=== PATIENT | male | born 1930 | race Caucasian/White ===

== ENCOUNTER 2020-01-31 13:46 | Inpatient (IN) ==
[2020-01-31] MEDS: Metoprolol XL (24 HR) Succ 50 MG TAB.ER.24H PO SCH (21:58)
[2020-02-01] MEDS: Piperacillin/Tazobactam 3.375 GM in 0.9 % Sodium Chloride Mini Bag 100 ML IVPB SCH ×3 (01:11→16:43)
[2020-02-01 05:47] LABS: Basophils % 0.4 %; Eosinophils # 0.2 K/mcL (0.0-0.6); Eosinophils % 2.7 %; Hematocrit 35.1 % (37.5-50.1); Hemoglobin 11.4 g/dL (12.9-16.9); Immature Granulocytes % 0.3 % (0-4); Lymphocytes # 1.2 K/mcL (0.6-4.6); Lymphocytes % 12.9 %; Mean Corpuscular HGB Conc 32.5 g/dL (31.6-35.5); Mean Corpuscular Hemoglobin 27.7 pg (28.0-33.3); Mean Corpuscular Volume 85.4 fL (83.0-100.0); Mean Platelet Volume 9.4 fL (9.4-12.4); Monocytes # 0.9 K/mcL (0.0-1.3); Neutrophils # 6.6 K/mcL (1.6-8.9); Platelet Count 262 K/mcL (140-400); Red Blood Count 4.11 M/mcL (4.19-5.50); Red Cell Distribution Width 14.2 % (11.5-14.5); Segmented Neutrophils % 73.7 %; White Blood Count 8.9 K/mcL (4.3-11.1)
[2020-02-01 06:07] LABS: BUN/Creatinine Ratio 13 (6-26); Blood Urea Nitrogen 12 mg/dL (8-23); Calcium 8.6 mg/dL (8.6-10.3); Carbon Dioxide 29 mEq/L (23-29); Chloride 100 mEq/L (98-107); Glucose 121 mg/dL (70-105); Osmolality,Calculated 281 (280-300); Potassium 3.7 mEq/L (3.5-5.1); Sodium 135 mEq/L (136-145); eGFR For African Americans > 60 (> 60); eGFR For Non-African Americans > 60 (> 60)
[2020-02-01] MEDS: Cyanocobalamin (B-12) 1,000 MCG TABLET PO SCH (08:46)
[2020-02-01] MEDS: Ascorbic Acid 500 MG TABLET PO SCH (08:46)
[2020-02-01] MEDS: Aspirin Enteric Coated 81 MG Tablet PO SCH (08:46)
[2020-02-01] MEDS: *HR* Metformin 500 MG TABLET PO SCH (08:47)
[2020-02-01] MEDS: Cholecalciferol (D-3) 1,000 UNIT (25MCG) TABLET PO SCH (08:47)
[2020-02-01] MEDS: hydroCHLOROthiazide 25 MG TABLET PO SCH (08:47)
[2020-02-01] MEDS: *HR* Glimepiride 2 MG TABLET PO SCH (08:47)
[2020-02-01] MEDS: Nystatin POWDER 30 GM BOTTLE TP SCH ×2 (15:04→21:18)
[2020-02-01] MEDS: Metoprolol XL (24 HR) Succ 50 MG TAB.ER.24H PO SCH (18:06)
[2020-02-01] MEDS ORDERED: Melatonin 3 MG TABLET PO ONE (21:05)
[2020-02-01] MEDS ORDERED: D5% in Water 1,000 ML IVC PRN (22:52)
[2020-02-01] MEDS ORDERED: Dextrose Gel 15 GM/37.5 ML TUBE PO PRN ×2 (22:52)
[2020-02-01] MEDS ORDERED: *HR* Dextrose 50 % in Water (Vial) 50 ML VIAL IVP PRN (22:52)
[2020-02-02] MEDS: Piperacillin/Tazobactam 3.375 GM in 0.9 % Sodium Chloride Mini Bag 100 ML IVPB SCH ×3 (01:20→16:53)
[2020-02-02] MEDS: *HR* Enoxaparin 40 MG/0.4 ML SYRINGE SQ SCH (05:29)
[2020-02-02 05:53] LABS: Hematocrit 31.9 % (37.5-50.1); Hemoglobin 10.6 g/dL (12.9-16.9); Mean Corpuscular HGB Conc 33.2 g/dL (31.6-35.5); Mean Corpuscular Hemoglobin 28.3 pg (28.0-33.3); Mean Corpuscular Volume 85.3 fL (83.0-100.0); Mean Platelet Volume 9.7 fL (9.4-12.4); Platelet Count 259 K/mcL (140-400); Red Blood Count 3.74 M/mcL (4.19-5.50)
[2020-02-02] MEDS: Insulin LISPRO 300 UNITS/3 ML VIAL SQ SCH ×4 (07:44→22:08)
[2020-02-02 07:59] LABS: BUN/Creatinine Ratio 15 (6-26); Blood Urea Nitrogen 14 mg/dL (8-23); Calcium 8.2 mg/dL (8.6-10.3); Carbon Dioxide 29 mEq/L (23-29); Chloride 101 mEq/L (98-107); Glucose 106 mg/dL (70-105); Osmolality,Calculated 283 (280-300); Potassium 3.6 mEq/L (3.5-5.1); Sodium 136 mEq/L (136-145); eGFR For African Americans > 60 (> 60); eGFR For Non-African Americans > 60 (> 60)
[2020-02-02] MEDS: Cholecalciferol (D-3) 1,000 UNIT (25MCG) TABLET PO SCH (08:20)
[2020-02-02] MEDS: Ascorbic Acid 500 MG TABLET PO SCH (08:20)
[2020-02-02] MEDS: Aspirin Enteric Coated 81 MG Tablet PO SCH (08:20)
[2020-02-02] MEDS: *HR* Metformin 500 MG TABLET PO SCH (08:20)
[2020-02-02] MEDS: *HR* Glimepiride 2 MG TABLET PO SCH (08:20)
[2020-02-02] MEDS: Nystatin POWDER 30 GM BOTTLE TP SCH ×3 (08:21→22:07)
[2020-02-02] MEDS: Cyanocobalamin (B-12) 1,000 MCG TABLET PO SCH (08:21)
[2020-02-02] MEDS: hydroCHLOROthiazide 25 MG TABLET PO SCH (08:21)
[2020-02-02] MEDS: Metoprolol XL (24 HR) Succ 50 MG TAB.ER.24H PO SCH (16:52)
[2020-02-03] MEDS: Piperacillin/Tazobactam 3.375 GM in 0.9 % Sodium Chloride Mini Bag 100 ML IVPB SCH ×2 (00:39→08:21)
[2020-02-03] MEDS: *HR* Enoxaparin 40 MG/0.4 ML SYRINGE SQ SCH (05:47)
[2020-02-03 07:07] LABS: Basophils % 0.4 %; Eosinophils # 0.3 K/mcL (0.0-0.6); Hematocrit 33.5 % (37.5-50.1); Hemoglobin 11.1 g/dL (12.9-16.9); Immature Granulocytes % 0.4 % (0-4); Lymphocytes # 1.3 K/mcL (0.6-4.6); Lymphocytes % 16.8 %; Mean Corpuscular HGB Conc 33.1 g/dL (31.6-35.5); Mean Corpuscular Hemoglobin 28.1 pg (28.0-33.3); Mean Corpuscular Volume 84.8 fL (83.0-100.0); Mean Platelet Volume 9.9 fL (9.4-12.4); Monocytes # 0.8 K/mcL (0.0-1.3); Monocytes % 9.8 %; Neutrophils # 5.4 K/mcL (1.6-8.9); Platelet Count 308 K/mcL (140-400); Red Blood Count 3.95 M/mcL (4.19-5.50); Segmented Neutrophils % 68.6 %; White Blood Count 7.8 K/mcL (4.3-11.1)
[2020-02-03 07:31] LABS: BUN/Creatinine Ratio 16 (6-26); Blood Urea Nitrogen 15 mg/dL (8-23); Calcium 8.5 mg/dL (8.6-10.3); Carbon Dioxide 30 mEq/L (23-29); Chloride 100 mEq/L (98-107); Glucose 110 mg/dL (70-105); Osmolality,Calculated 287 (280-300); Potassium 3.5 mEq/L (3.5-5.1); Sodium 138 mEq/L (136-145); eGFR For African Americans > 60 (> 60); eGFR For Non-African Americans > 60 (> 60)
[2020-02-03] MEDS: Insulin LISPRO 300 UNITS/3 ML VIAL SQ SCH ×4 (08:12→20:03)
[2020-02-03] MEDS: Cholecalciferol (D-3) 1,000 UNIT (25MCG) TABLET PO SCH (08:20)
[2020-02-03] MEDS: Ascorbic Acid 500 MG TABLET PO SCH (08:20)
[2020-02-03] MEDS: *HR* Metformin 500 MG TABLET PO SCH (08:20)
[2020-02-03] MEDS: Cyanocobalamin (B-12) 1,000 MCG TABLET PO SCH (08:20)
[2020-02-03] MEDS: hydroCHLOROthiazide 25 MG TABLET PO SCH (08:20)
[2020-02-03] MEDS: *HR* Glimepiride 2 MG TABLET PO SCH (08:20)
[2020-02-03] MEDS: Aspirin Enteric Coated 81 MG Tablet PO SCH (08:21)
[2020-02-03] MEDS: Nystatin POWDER 30 GM BOTTLE TP SCH ×3 (08:23→20:03)
[2020-02-03] MEDS: Metoprolol XL (24 HR) Succ 50 MG TAB.ER.24H PO SCH (16:33)
[2020-02-03] MEDS: QUEtiapine Fumarate 25 MG TABLET PO SCH (20:02)
[2020-02-03] MEDS: Doxycycline 100 MG CAPSULE PO SCH (20:03)
[2020-02-04] MEDS: *HR* Enoxaparin 40 MG/0.4 ML SYRINGE SQ SCH (05:48)
[2020-02-04] MEDS: Insulin LISPRO 300 UNITS/3 ML VIAL SQ SCH ×4 (08:35→20:05)
[2020-02-04] MEDS: hydroCHLOROthiazide 25 MG TABLET PO SCH (08:42)
[2020-02-04] MEDS: Ascorbic Acid 500 MG TABLET PO SCH (08:42)
[2020-02-04] MEDS: Doxycycline 100 MG CAPSULE PO SCH ×2 (08:42→20:00)
[2020-02-04] MEDS: Cholecalciferol (D-3) 1,000 UNIT (25MCG) TABLET PO SCH (08:42)
[2020-02-04] MEDS: *HR* Glimepiride 2 MG TABLET PO SCH (08:42)
[2020-02-04] MEDS: *HR* Metformin 500 MG TABLET PO SCH (08:42)
[2020-02-04] MEDS: Aspirin Enteric Coated 81 MG Tablet PO SCH (08:42)
[2020-02-04] MEDS: Nystatin POWDER 30 GM BOTTLE TP SCH ×3 (08:43→20:01)
[2020-02-04] MEDS: Cyanocobalamin (B-12) 1,000 MCG TABLET PO SCH (08:43)
[2020-02-04] MEDS: Neosporin OINT 15 GM TUBE TP SCH ×2 (13:14→20:05)
[2020-02-04] MEDS: Ciprofloxacin OPTH Soln 2.5 ML BOTTLE BOTH EYES SCH ×3 (13:14→20:07)
[2020-02-04] MEDS: Metoprolol XL (24 HR) Succ 50 MG TAB.ER.24H PO SCH (17:01)
[2020-02-04] MEDS: QUEtiapine Fumarate 25 MG TABLET PO SCH (20:01)
[2020-02-05] MEDS: Ciprofloxacin OPTH Soln 2.5 ML BOTTLE BOTH EYES SCH ×6 (02:54→20:20)
[2020-02-05] MEDS: *HR* Enoxaparin 40 MG/0.4 ML SYRINGE SQ SCH (06:05)
[2020-02-05 08:19] LABS: Basophils % 0.4 %; Eosinophils # 0.3 K/mcL (0.0-0.6); Hematocrit 35.3 % (37.5-50.1); Hemoglobin 11.6 g/dL (12.9-16.9); Immature Granulocytes % 0.5 % (0-4); Lymphocytes # 1.2 K/mcL (0.6-4.6); Lymphocytes % 11.5 %; Mean Corpuscular HGB Conc 32.9 g/dL (31.6-35.5); Mean Corpuscular Hemoglobin 28.1 pg (28.0-33.3); Mean Corpuscular Volume 85.5 fL (83.0-100.0); Mean Platelet Volume 9.3 fL (9.4-12.4); Monocytes # 0.9 K/mcL (0.0-1.3); Monocytes % 8.3 %; Neutrophils # 8.2 K/mcL (1.6-8.9); Platelet Count 281 K/mcL (140-400); Red Blood Count 4.13 M/mcL (4.19-5.50); Red Cell Distribution Width 14.4 % (11.5-14.5); Segmented Neutrophils % 76.3 %; White Blood Count 10.7 K/mcL (4.3-11.1)
[2020-02-05 08:35] LABS: BUN/Creatinine Ratio 25 (6-26); Blood Urea Nitrogen 20 mg/dL (8-23); Calcium 8.6 mg/dL (8.6-10.3); Carbon Dioxide 31 mEq/L (23-29); Chloride 100 mEq/L (98-107); Glucose 118 mg/dL (70-105); Osmolality,Calculated 288 (280-300); Potassium 3.7 mEq/L (3.5-5.1); Sodium 137 mEq/L (136-145); eGFR For African Americans > 60 (> 60); eGFR For Non-African Americans > 60 (> 60)
[2020-02-05] MEDS: Insulin LISPRO 300 UNITS/3 ML VIAL SQ SCH ×4 (09:02→23:18)
[2020-02-05] MEDS: Ascorbic Acid 500 MG TABLET PO SCH (09:09)
[2020-02-05] MEDS: *HR* Glimepiride 2 MG TABLET PO SCH (09:09)
[2020-02-05] MEDS: Cholecalciferol (D-3) 1,000 UNIT (25MCG) TABLET PO SCH (09:09)
[2020-02-05] MEDS: Aspirin Enteric Coated 81 MG Tablet PO SCH (09:09)
[2020-02-05] MEDS: hydroCHLOROthiazide 25 MG TABLET PO SCH (09:09)
[2020-02-05] MEDS: *HR* Metformin 500 MG TABLET PO SCH (09:09)
[2020-02-05] MEDS: Doxycycline 100 MG CAPSULE PO SCH ×2 (09:09→20:18)
[2020-02-05] MEDS: Cyanocobalamin (B-12) 1,000 MCG TABLET PO SCH (09:09)
[2020-02-05] MEDS: Nystatin POWDER 30 GM BOTTLE TP SCH ×3 (12:01→20:18)
[2020-02-05] MEDS: Neosporin OINT 15 GM TUBE TP SCH ×2 (12:02→23:18)
[2020-02-05] MEDS: Metoprolol XL (24 HR) Succ 50 MG TAB.ER.24H PO SCH (17:12)
[2020-02-05] MEDS: QUEtiapine Fumarate 25 MG TABLET PO SCH (20:18)
[2020-02-06] MEDS: Ciprofloxacin OPTH Soln 2.5 ML BOTTLE BOTH EYES SCH ×6 (00:44→20:36)
[2020-02-06] MEDS: *HR* Enoxaparin 40 MG/0.4 ML SYRINGE SQ SCH (06:35)
[2020-02-06] MEDS: Insulin LISPRO 300 UNITS/3 ML VIAL SQ SCH ×4 (08:18→20:36)
[2020-02-06] MEDS: Ascorbic Acid 500 MG TABLET PO SCH (08:19)
[2020-02-06] MEDS: Aspirin Enteric Coated 81 MG Tablet PO SCH (08:19)
[2020-02-06] MEDS: *HR* Glimepiride 2 MG TABLET PO SCH (08:19)
[2020-02-06] MEDS: Doxycycline 100 MG CAPSULE PO SCH ×2 (08:19→20:32)
[2020-02-06] MEDS: hydroCHLOROthiazide 25 MG TABLET PO SCH (08:19)
[2020-02-06] MEDS: Cholecalciferol (D-3) 1,000 UNIT (25MCG) TABLET PO SCH (08:19)
[2020-02-06] MEDS: *HR* Metformin 500 MG TABLET PO SCH (08:19)
[2020-02-06] MEDS: Cyanocobalamin (B-12) 1,000 MCG TABLET PO SCH (08:20)
[2020-02-06] MEDS: Neosporin OINT 15 GM TUBE TP SCH ×2 (11:29→20:32)
[2020-02-06] MEDS: Nystatin POWDER 30 GM BOTTLE TP SCH ×3 (11:32→20:32)
[2020-02-06] MEDS: Metoprolol XL (24 HR) Succ 50 MG TAB.ER.24H PO SCH (17:27)
[2020-02-06] MEDS: QUEtiapine Fumarate 25 MG TABLET PO SCH (20:32)
[2020-02-07] MEDS: Ciprofloxacin OPTH Soln 2.5 ML BOTTLE BOTH EYES SCH ×7 (01:37→23:31)
[2020-02-07] MEDS: *HR* Enoxaparin 40 MG/0.4 ML SYRINGE SQ SCH (05:16)
[2020-02-07] MEDS: Insulin LISPRO 300 UNITS/3 ML VIAL SQ SCH ×4 (07:47→20:19)
[2020-02-07] MEDS: Cholecalciferol (D-3) 1,000 UNIT (25MCG) TABLET PO SCH (08:59)
[2020-02-07] MEDS: Aspirin Enteric Coated 81 MG Tablet PO SCH (08:59)
[2020-02-07] MEDS: Doxycycline 100 MG CAPSULE PO SCH ×2 (09:00→19:45)
[2020-02-07] MEDS: hydroCHLOROthiazide 25 MG TABLET PO SCH (09:00)
[2020-02-07] MEDS: *HR* Metformin 500 MG TABLET PO SCH (09:00)
[2020-02-07] MEDS: Cyanocobalamin (B-12) 1,000 MCG TABLET PO SCH (09:00)
[2020-02-07] MEDS: *HR* Glimepiride 2 MG TABLET PO SCH (09:00)
[2020-02-07] MEDS: Ascorbic Acid 500 MG TABLET PO SCH (09:00)
[2020-02-07] MEDS: Nystatin POWDER 30 GM BOTTLE TP SCH ×3 (09:01→19:46)
[2020-02-07] MEDS: Neosporin OINT 15 GM TUBE TP SCH ×2 (09:01→19:46)
[2020-02-07] MEDS: Metoprolol XL (24 HR) Succ 50 MG TAB.ER.24H PO SCH (18:15)
[2020-02-07] MEDS: QUEtiapine Fumarate 25 MG TABLET PO SCH (19:45)
[2020-02-08] MEDS: Ciprofloxacin OPTH Soln 2.5 ML BOTTLE BOTH EYES SCH ×6 (03:38→23:29)
[2020-02-08] MEDS: *HR* Enoxaparin 40 MG/0.4 ML SYRINGE SQ SCH (05:55)
[2020-02-08] MEDS: Insulin LISPRO 300 UNITS/3 ML VIAL SQ SCH ×4 (08:12→20:34)
[2020-02-08] MEDS: *HR* Metformin 500 MG TABLET PO SCH (08:18)
[2020-02-08] MEDS: Doxycycline 100 MG CAPSULE PO SCH ×2 (08:18→20:33)
[2020-02-08] MEDS: *HR* Glimepiride 2 MG TABLET PO SCH (08:18)
[2020-02-08] MEDS: Aspirin Enteric Coated 81 MG Tablet PO SCH (08:18)
[2020-02-08] MEDS: hydroCHLOROthiazide 25 MG TABLET PO SCH (08:18)
[2020-02-08] MEDS: Ascorbic Acid 500 MG TABLET PO SCH (08:18)
[2020-02-08] MEDS: Cholecalciferol (D-3) 1,000 UNIT (25MCG) TABLET PO SCH (08:18)
[2020-02-08] MEDS: Nystatin POWDER 30 GM BOTTLE TP SCH ×3 (08:19→20:33)
[2020-02-08] MEDS: Cyanocobalamin (B-12) 1,000 MCG TABLET PO SCH (08:20)
[2020-02-08] MEDS: Neosporin OINT 15 GM TUBE TP SCH ×2 (14:15→20:34)
[2020-02-08] MEDS: Metoprolol XL (24 HR) Succ 50 MG TAB.ER.24H PO SCH (17:40)
[2020-02-08] MEDS: QUEtiapine Fumarate 25 MG TABLET PO SCH (20:33)
[2020-02-09] MEDS: Ciprofloxacin OPTH Soln 2.5 ML BOTTLE BOTH EYES SCH ×3 (04:05→12:12)
[2020-02-09] MEDS: *HR* Enoxaparin 40 MG/0.4 ML SYRINGE SQ SCH (05:52)
[2020-02-09] MEDS: Insulin LISPRO 300 UNITS/3 ML VIAL SQ SCH ×4 (07:41→20:24)
[2020-02-09] MEDS: Aspirin Enteric Coated 81 MG Tablet PO SCH (08:08)
[2020-02-09] MEDS: Ascorbic Acid 500 MG TABLET PO SCH (08:08)
[2020-02-09] MEDS: Cholecalciferol (D-3) 1,000 UNIT (25MCG) TABLET PO SCH (08:08)
[2020-02-09] MEDS: Doxycycline 100 MG CAPSULE PO SCH ×2 (08:08→20:20)
[2020-02-09] MEDS: Cyanocobalamin (B-12) 1,000 MCG TABLET PO SCH (08:08)
[2020-02-09] MEDS: hydroCHLOROthiazide 25 MG TABLET PO SCH (08:08)
[2020-02-09] MEDS: *HR* Metformin 500 MG TABLET PO SCH (08:08)
[2020-02-09] MEDS: *HR* Glimepiride 2 MG TABLET PO SCH (08:09)
[2020-02-09] MEDS: Nystatin POWDER 30 GM BOTTLE TP SCH ×3 (08:10→20:21)
[2020-02-09] MEDS: Neosporin OINT 15 GM TUBE TP SCH ×2 (08:10→20:20)
[2020-02-09] MEDS: Metoprolol XL (24 HR) Succ 50 MG TAB.ER.24H PO SCH (17:23)
[2020-02-09] MEDS: QUEtiapine Fumarate 25 MG TABLET PO SCH (20:20)
[2020-02-10] MEDS: *HR* Enoxaparin 40 MG/0.4 ML SYRINGE SQ SCH (06:10)
[2020-02-10 06:34] VITALS: BP 149/73
[2020-02-10] MEDS: Insulin LISPRO 300 UNITS/3 ML VIAL SQ SCH ×2 (07:57→12:15)
[2020-02-10] MEDS: Ascorbic Acid 500 MG TABLET PO SCH (08:32)
[2020-02-10] MEDS: Cholecalciferol (D-3) 1,000 UNIT (25MCG) TABLET PO SCH (08:32)
[2020-02-10] MEDS: hydroCHLOROthiazide 25 MG TABLET PO SCH (08:32)
[2020-02-10] MEDS: *HR* Glimepiride 2 MG TABLET PO SCH (08:33)
[2020-02-10] MEDS: Nystatin POWDER 30 GM BOTTLE TP SCH (08:33)
[2020-02-10] MEDS: *HR* Metformin 500 MG TABLET PO SCH (08:33)
[2020-02-10] MEDS: Doxycycline 100 MG CAPSULE PO SCH (08:33)
[2020-02-10] MEDS: Cyanocobalamin (B-12) 1,000 MCG TABLET PO SCH (08:34)
[2020-02-10] MEDS: Aspirin Enteric Coated 81 MG Tablet PO SCH (12:18)
[2020-02-10] MEDS: Neosporin OINT 15 GM TUBE TP SCH (12:19)
== END 2020-02-10 14:15 | disposition home health service (06) | DRG 603 ==
LOC: INPPIK 21:46
PROVIDERS: ADMIT Family Medicine; ATTEND Family Medicine